=== PATIENT | female | born 1980 | race Caucasian/White ===

== ENCOUNTER 2017-07-22 07:56 | Emergency (ER) | payer BC ==
[2017-07-22 08:31] LABS: Hemoglobin 11.6 g/dL (12.0-16.0); Mean Corpuscular HGB CONC 32.5 g/dL (32.0-36.0); Mean Corpuscular Hemoglobin 24.5 pg (27.0-31.0); Mean Corpuscular Volume 75.2 fl (81.0-99.0); Mean Platelet Volume 8.9 fL (7.4-10.4); Platelet Count 282 thou/uL (130-400); RBC Distribution Width 13.9 % (11.5-14.5); Red Blood Cell (RBC) Count 4.75 mill/uL (4.20-5.40); White Blood Cell (WBC) Count 7.2 thou/uL (4.8-10.8)
[2017-07-22 08:38] LABS: ALT (SGPT) 12 U/L (8-55); AST (SGOT) 12 U/L (5-34); Albumin 3.9 g/dL (3.5-5.0); Alkaline Phosphatase 83 U/L (40-150); Anion Gap 13 mmol/L (10-20); BUN (Urea Nitrogen) 10 mg/dL (7.0-18.7); Bilirubin, Total 0.2 mg/dL (0.2-1.2); CK (CPK) 61 U/L (29-168); Calc. Creatinine Clearance 0 mL/min (70-130); Calcium 9.1 mg/dL (7.8-10.44); Carbon Dioxide 19 mmol/L (22-29); Chloride 110 mmol/L (98-107); Estimated GFR-MDRD 69; Globulin 3.5 g/dL (2.4-3.5); Glucose 115 mg/dL (70-105); Protein, Total 7.4 g/dL (6.0-8.3); Sodium 138 mmol/L (136-145)
[2017-07-22 08:40] LABS: #Basophils 0.1 thou/uL (0.0-0.2); #Eosinphils 0.2 thou/uL (0.0-0.7); #Lymphocytes 2.2 thou/uL (1.20-3.40); #Monocytes 0.5 thou/uL (0.11-0.59); #Neutrophils 4.2 thou/uL (1.40-6.50); %Basophils 1.5 % (0.0-1.0); %Eosinophils 2.9 % (0.0-10.0); %Lymphocytes 30.2 % (21.0-51.0); %Monocytes 6.4 % (0.0-10.0); MDiff Complete? YES; Microcytosis SLIGHT = 6-15 cells (100X) (0-5/hpf); PLT Morphology Comment Appears Adequate
[2017-07-22 08:42] LABS: CKMB 0.8 ng/mL (0-6.6); Troponin I Less than 0.010 ng/mL (< 0.028)
[2017-07-22] MEDS ORDERED: Ketorolac Tromethamine 30 MG/ML VIAL ONE (08:58)
--- NOTE | 2017-07-22 10:37 | RAD ---
PA AND LATERAL CHEST: History: Chest pain. FINDINGS: The cardiomediastinum is normal. The lungs are expanded and clear. No acute osseous abnormality is se en. There are mild degenerative changes in the spine. IMPRESSION: No radiographic evidence of acute cardiopulmonary process. POS: [facility]
== END 2017-07-22 09:12 | disposition home or self-care (01) ==
LOC: SCSER 07:56
DX: R07.89 Other chest pain (principal); D50.9 Iron deficiency anemia, unspecified; F32.9 Major depressive disorder, single episode, unspecified; F41.9 Anxiety disorder, unspecified
CPT/HCPCS: 71046; 80053; 82550; 82553; 84484; 85025; 85379; 93005; 96374; J1885

== ENCOUNTER 2017-12-08 11:35 | Emergency (ER) | payer BC ==
[2017-12-08] MEDS ORDERED: Bacitracin Zinc 1 Packet ONE (12:06)
== END 2017-12-08 12:09 | disposition home or self-care (01) ==
LOC: SCSER 11:35
DX: L25.3 Unspecified contact dermatitis due to other chemical products (principal); T65.891A Toxic effect of other specified substances, accidental (unintentional), initial encounter; F41.9 Anxiety disorder, unspecified; F32.9 Major depressive disorder, single episode, unspecified
CPT/HCPCS: 99283

== ENCOUNTER 2018-01-07 08:39 | Emergency (ER) | payer BC ==
[2018-01-07] MEDS ORDERED: Oxymetazoline HCl 0.05% ( 15 ML ) ONE (09:06)
== END 2018-01-07 09:26 | disposition home or self-care (01) ==
LOC: SCSER 08:39
DX: J32.9 Chronic sinusitis, unspecified (principal); D50.9 Iron deficiency anemia, unspecified; F41.9 Anxiety disorder, unspecified; F32.9 Major depressive disorder, single episode, unspecified
CPT/HCPCS: 99283

== ENCOUNTER 2018-02-12 22:43 | Emergency (ER) | payer BC ==
[2018-02-12] MEDS ORDERED: Prochlorperazine 10 MG/2 ML VIAL ONE (23:03)
[2018-02-12] MEDS ORDERED: diphenhydrAMINE 50 MG/ML VIAL ONE (23:03)
== END 2018-02-13 | disposition home or self-care (01) ==
LOC: SCSER 22:43
DX: R51 Headache (principal); D50.9 Iron deficiency anemia, unspecified; G43.909 Migraine, unspecified, not intractable, without status migrainosus; F41.9 Anxiety disorder, unspecified; F32.9 Major depressive disorder, single episode, unspecified; Z79.899 Other long term (current) drug therapy
CPT/HCPCS: 96361; 96374; 96375; J0780; J1200